=== PATIENT | male | born 1995 | race Caucasian/White ===

== ENCOUNTER 2016-10-03 17:02 | Emergency (ER) | payer OTHER ==
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
--- NOTE | 2016-10-03 17:50 | ED ORDER SUMMARY ---
..... Patient: PREMA HARRIS OrderSheet [facility] VisitID: [id number] [address] [place], [place] [address] 20y, M Registration Date/Time: 10/03/2016 ORDER SHEET Weight: 99.7 kg (stated) Allergies: No Known Drug Allergy GENERAL ORDERS: Elbow 3 or 4V Right Urgent (17:19 10/03/2016 EKoroleva P.A.-C) (Ack 17:27 LNations ER Tech1) (17:51 LWhalen R.N.) [place] (17:47 10/03/2016 EKoroleva P.A.-C) (17:51 LWhalen R.N.) MEDICATION ORDERS: Motrin PO 800 mg (NOW) (17:46 10/03/2016 EKoroleva P.A.-C) (17:51 LWhalen R.N.) IV FLUIDS: ORDER SHEET NOTES: [Electronically signed by Salud CampbellA.-C (17:54 10/03/2016)] [Electronically signed by Coy Thorpe R.N. (17:56 10/03/2016)] [Electronically locked/signed by Coy Thorpe R.N. (17:56 10/03/2016)]
--- NOTE | 2016-10-03 17:50 | ED CLINICAL REPORT ---
Clinical Report - Physicians/Mid Levels [facility] [address] [place] [address] 10/03/2016 17:03 [id number] Time Seen: 17:27 Oct 03 2016. Arrived- By private vehicle. Historian- patient. HISTORY OF PRESENT ILLNESS Chief Complaint: Injury to the right elbow. The injury happened just prior to arrival yesterday. This was not an incised wound. Patient is experiencing mild pain. Patient denies injury to the head. ( patient fell into an embankment, Possibly hyperextended his elbow. Patient is right-hand dominant. Denies any prior major injury to the right hand or elbow. Denies any injury to his head or neck.). REVIEW OF SYSTEMS The patient sustained a laceration. No tingling or numbness. All systems otherwise negative, except as recorded above. PAST HISTORY The patient's dominant hand is the right. PHYSICAL EXAM Vital Signs: 10/03/2016 17:11 BP: 127/76. HR: 74. RR: 18. O2 saturation: 100%. Temp: 97.9 F. Appearance: Alert. Head: Head atraumatic. ENT: Nose normal. Neck: Normal inspection. Neck supple. CVS: Normal heart rate and rhythm. Respiratory: No respiratory distress. Breath sounds normal. Abdomen: No visible injury. Soft. Skin: Skin warm. Normal skin color. Extremities: Right shoulder. No tenderness or swelling. Right arm. No tenderness or swelling. Right elbow. Right forearm. No swelling. Neuro, Vascular and Tendons: Vascular status intact. No pulse deficit present. Motor intact. Tendon function intact. No functional tendon deficit. LABS, X-RAYS, AND EKG Rt Elbow X-ray: Soft tissues normal. Air present in the soft tissue. Foreign body present. Interpretation time: 1745. PROGRESS AND PROCEDURES Course of Care: X-ray reviewed with Dr. Hernández, no signs of fracture. Patient with full extension, minor swelling. No abrasion or laceration. No other injury. Patient is stable. Symptoms better. Patient/family counseled. Disposition: Discharged. CLINICAL IMPRESSION Sprain of the radial collateral ligament of the left elbow. INSTRUCTIONS Apply ice. Elevate affected areas above chest level. (maximilian wrap). Prescription Medications: Ibuprofen 800 mg tablets: take 1 tablet orally every 8 hours for 5 days, as needed for pain. Dispense fifteen (15). No refill. Follow-up: Follow up with your doctor as needed. (Electronically signed by Salud Campbell P.A.-C 10/03/2016 17:54)
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
--- NOTE | 2016-10-03 17:50 | ED ORDER SUMMARY ---
..... Patient: PREMA HARRIS OrderSheet [facility] VisitID: [id number] [address] [place]án[place] [address] 20y, M Registration Date/Time: 10/03/2016 ORDER SHEET Weight: 99.7 kg (stated) Allergies: No Known Drug Allergy GENERAL ORDERS: Elbow 3 or 4V Right Urgent (17:19 10/03/2016 EKoroleva P.A.-C) (Ack 17:27 LNations ER Tech1) (17:51 LWhalen R.N.) [place] (17:47 10/03/2016 EKoroleva P.A.-C) (17:51 LWhalen R.N.) MEDICATION ORDERS: Motrin PO 800 mg (NOW) (17:46 10/03/2016 EKoroleva P.A.-C) (17:51 LWhalen R.N.) IV FLUIDS: ORDER SHEET NOTES: [Electronically signed by Salud CampbellA.-C (17:54 10/03/2016)] [Electronically signed by Coy Thorpe R.N. (17:56 10/03/2016)] [Electronically locked/signed by Coy Thorpe R.N. (17:56 10/03/2016)]
--- NOTE | 2016-10-03 17:50 | ED CLINICAL REPORT ---
Clinical Report - Physicians/Mid Levels [facility] [address] [place] [address] 10/03/2016 17:03 [id number] Time Seen: 17:27 Oct 03 2016. Arrived- By private vehicle. Historian- patient. HISTORY OF PRESENT ILLNESS Chief Complaint: Injury to the right elbow. The injury happened just prior to arrival yesterday. This was not an incised wound. Patient is experiencing mild pain. Patient denies injury to the head. ( patient fell into an embankment, Possibly hyperextended his elbow. Patient is right-hand dominant. Denies any prior major injury to the right hand or elbow. Denies any injury to his head or neck.). REVIEW OF SYSTEMS The patient sustained a laceration. No tingling or numbness. All systems otherwise negative, except as recorded above. PAST HISTORY The patient's dominant hand is the right. PHYSICAL EXAM Vital Signs: 10/03/2016 17:11 BP: 127/76. HR: 74. RR: 18. O2 saturation: 100%. Temp: 97.9 F. Appearance: Alert. Head: Head atraumatic. ENT: Nose normal. Neck: Normal inspection. Neck supple. CVS: Normal heart rate and rhythm. Respiratory: No respiratory distress. Breath sounds normal. Abdomen: No visible injury. Soft. Skin: Skin warm. Normal skin color. Extremities: Right shoulder. No tenderness or swelling. Right arm. No tenderness or swelling. Right elbow. Right forearm. No swelling. Neuro, Vascular and Tendons: Vascular status intact. No pulse deficit present. Motor intact. Tendon function intact. No functional tendon deficit. LABS, X-RAYS, AND EKG Rt Elbow X-ray: Soft tissues normal. Air present in the soft tissue. Foreign body present. Interpretation time: 1745. PROGRESS AND PROCEDURES Course of Care: X-ray reviewed with Dr. Hernández, no signs of fracture. Patient with full extension, minor swelling. No abrasion or laceration. No other injury. Patient is stable. Symptoms better. Patient/family counseled. Disposition: Discharged. CLINICAL IMPRESSION Sprain of the radial collateral ligament of the left elbow. INSTRUCTIONS Apply ice. Elevate affected areas above chest level. (maximilian wrap). Prescription Medications: Ibuprofen 800 mg tablets: take 1 tablet orally every 8 hours for 5 days, as needed for pain. Dispense fifteen (15). No refill. Follow-up: Follow up with your doctor as needed. (Electronically signed by Salud Campbell P.A.-C 10/03/2016 17:54)
--- NOTE | 2016-10-03 17:57 | ED MAR SUMMARY ---
..... Medication Administration Record [facility] [address] [place] [address] Patient: PREMA HARRIS Visit ID: [id number] 20y, M Weight: 99.7 kg Height/Length: 75 in BMI: 27.5 ALLERGIES: No Known Drug Allergy Given 17:51 10/03/2016 Coy Thorpe R.N. Medication Administered: MOTRIN [PO], Dose: 800 mg Tablets PO. Medication Ordered: Motrin PO 800 mg (NOW).
--- NOTE | 2016-10-03 17:57 | ED MED RECONCILIATION SUMMARY ---
Patient: PREMA HARRIS Medication Reconciliation Report [facility] VisitID: [id number] [address] [place], [place] [address] 20y, M Registration Date/Time: 10/03/2016 Weight: 99.7 kg Height/Length: 75 in. BMI: 27.5 ALLERGIES: No Known Drug Allergy The patient's Home Medications are listed below: THE FOLLOWING MEDICATIONS NEED TO BE RECONCILED: Zorvolex Oral The source(s) of the original Home Medication information: Not obtained. The following Medications were given to the patient in the Emergency Department: Motrin [PO] PO 800 mg, administered: 10/03/2016 5:51:00 PM The following Medications were prescribed to the patient: Ibuprofen 800 mg tablets: take 1 tablet orally every 8 hours for 5 days, as needed for pain. Dispense fifteen (15). No refill. -- Salud Campbell, LeslieAAdalbertoC
--- NOTE | 2016-10-03 17:57 | ED MAR SUMMARY ---
..... Medication Administration Record [facility] [address] [place] [address] Patient: PREMA HARRIS Visit ID: [id number] 20y, M Weight: 99.7 kg Height/Length: 75 in BMI: 27.5 ALLERGIES: No Known Drug Allergy Given 17:51 10/03/2016 Coy Thorpe R.N. Medication Administered: MOTRIN [PO], Dose: 800 mg Tablets PO. Medication Ordered: Motrin PO 800 mg (NOW).
--- NOTE | 2016-10-03 17:57 | ED DISCHARGE INSTRUCTIONS ---
Patient: PREMA HARRIS General Instructions Merged [facility] VisitID: [id number] [place] [address] 20y, M Registration Date/Time: 10/03/2016 Sprain of the radial collateral ligament of the left elbow. INSTRUCTIONS Apply ice. Elevate affected areas above chest level. (maximilian wrap). Prescription Medications: Ibuprofen 800 mg tablets: take 1 tablet orally every 8 hours for 5 days, as needed for pain. Dispense fifteen (15). No refill. Follow-up: Follow up with your doctor as needed. ADDITIONAL INFORMATION Sprain, Elbow A sprain is a tearing of the ligaments that hold a joint together. This may take up to six weeks to fully heal, depending on how severe it is. Moderate to severe sprains are treated with a sling or splint. Minor sprains can be treated without any special support. Home care The following guidelines will help you care for your injury at home: Keep your arm elevated to reduce pain and swelling. When sitting or lying down elevate your arm above the level of your heart. You can do this by placing your arm on a pillow that rests on your chest or on a pillow at your side. This is most important during the first 48 hours after injury. Apply an ice pack (ice cubes in a plastic bag, wrapped in a towel) over the injured area for 20 minutes every 12 hours the first day. You should continue with ice packs 34 times a day for the next two days. Continue the use of ice packs for relief of pain and swelling as needed. If you were given a plaster or fiberglasssplint,leave it on as advised, or until seen by your doctor. Keep it dry at all times. Bathe with your splint out of the water, protected with a large plastic bag, rubber-banded at the top end. If a fiberglass splint gets wet, you can dry it with a hair-dryer. Once the splint is removed, moving the elbow through its full range of motion several times a day will prevent stiffness. If you were given aslingonly, begin gradual range of motion exercises after the first few days, unless told otherwise. This will prevent stiffness in the elbow. Stop wearing the sling once the pain is better. You may use acetaminophen or ibuprofen to control pain, unless another pain medicine was prescribed.If you have chronic liver or kidney disease or ever had a stomach ulcer or GI bleeding, talk with your doctor before using these medicines. Follow-up care Follow up with your doctor as directed. Any X-rays you had today dont show any broken bones, breaks, or fractures. Sometimes fractures dont show up on the first X-ray. Bruises and sprains can sometimes hurt as much as a fracture. These injuries can take time to heal completely. If your symptoms dont improve or they get worse, talk with your doctor. You may need a repeat X-ray. When to seek medical care Get prompt medical attention if any of the following occur: The plaster splint becomes wet or soft The fiberglass splint remains wet for more than 24 hours Increased tightness or pain in the elbow Fingers become swollen, cold, blue, numb or tingly You have been given the following additional information: Sprain Elbow (Electronically signed by Salud Campbell P.A.-C 10/03/2016 17:54)
--- NOTE | 2016-10-03 17:57 | ED MED RECONCILIATION SUMMARY ---
Patient: PREMA HARRIS Medication Reconciliation Report [facility] VisitID: [id number] [address] [place] [address] 20y, M Registration Date/Time: 10/03/2016 Weight: 99.7 kg Height/Length: 75 in. BMI: 27.5 ALLERGIES: No Known Drug Allergy The patient's Home Medications are listed below: THE FOLLOWING MEDICATIONS NEED TO BE RECONCILED: Zorvolex Oral The source(s) of the original Home Medication information: Not obtained. The following Medications were given to the patient in the Emergency Department: Motrin [PO] PO 800 mg, administered: 10/03/2016 5:51:00 PM The following Medications were prescribed to the patient: Ibuprofen 800 mg tablets: take 1 tablet orally every 8 hours for 5 days, as needed for pain. Dispense fifteen (15). No refill. -- Salud Campbell, LeslieAAdalbertoC
--- NOTE | 2016-10-03 18:06 | DIAGNOSTIC IMAGING REPORT ---
PROCEDURE: XR ELBOW 3 OR 4 VIEWS - RIGHT INDICATION: TRAUMA/INJURY TECHNIQUE: Four views. COMPARISON: None. FINDINGS: Equivocal elevation of the anterior fat pad. No fracture or dislocation. IMPRESSION: 1. Equivocal elevation of the anterior fat pad and questionable occult fracture. 2. Results discussed with Dr. Hernández
== END 2016-10-03 17:50 | disposition home or self-care (01) ==
LOC: ED SRH 17:02
DX: S53.431A Radial collateral ligament sprain of right elbow, initial encounter (principal); W17.81XA Fall down embankment (hill), initial encounter; Y93.9 Activity, unspecified; Y92.9 Unspecified place or not applicable; Y99.9 Unspecified external cause status